=== PATIENT | female | born 1960 | race Caucasian/White ===

== ENCOUNTER 2017-01-19 14:27 | Emergency (ER) | payer OTHER ==
[2017-01-19 14:38] VITALS: BP 120/63; PULSE 68; RESP 18; TEMP 98; O2SAT 99
--- NOTE | 2017-01-19 14:55 | ED PDOC ---
Upper Extremity Pain/Injury Time Seen by Provider: 01/19/17 14:27 Chief Complaint (Nursing): Finger,Hand,&Wrist Chief Complaint (Provider): Left hand pain History Per: Patient History/Exam Limitations: no limitations Onset/Duration Of Symptoms: Hrs (x3 hours) Current Symptoms Are (Timing): Still Present Additional Complaint(s): 56 y/o right-handed female presents to the emergency department with a complaint of a left hand pain after machine at work closed on her fingers about 3 hours prior to arrival. Reports taking two 200 mg of Motrin for the relief of pain. Denies any further medical complaints. Past Medical History Reviewed: Historical Data, Nursing Documentation, Vital Signs Vital Signs: Last Vital Signs Temp 98 F 01/19/17 14:35 Pulse 68 01/19/17 14:35 Resp 18 01/19/17 14:35 BP 120/63 01/19/17 14:35 Pulse Ox 99 01/19/17 14:35 - Medical History PMH: No Chronic Diseases - Surgical History Surgical History: No Surg Hx - Family History Family History: States: Unknown Family Hx - Social History Current smoker - smoking cessation education provided: No Alcohol: None Drugs: Denies - Home Medications Home Medications: Ambulatory Orders Medication Instructions Recorded Ibuprofen [Motrin] 600 mg PO Q8 PRN #21 tab 01/19/17 - Allergies Allergies/Adverse Reactions: Allergies Allergy/AdvReac Type Severity Reaction Status Date / Time No Known Allergies Allergy Verified 01/19/17 14:35 Review of Systems ROS Statement: Except As Marked, All Systems Reviewed And Found Negative Musculoskeletal: Positive for: Hand Pain (Right) Physical Exam - Reviewed Nursing Documentation Reviewed: Yes Vital Signs Reviewed: Yes - Physical Exam Appears: Positive for: Non-toxic, No Acute Distress Head Exam: Positive for: ATRAUMATIC, NORMAL INSPECTION, NORMOCEPHALIC Skin: Positive for: Normal Color, Warm, Dry Neck: Positive for: Normal, Supple Extremity: Positive for: Normal ROM (Good function of the thumb. Able to flex and extend of all fingers. ), Tenderness (Tenderness and ecchymosis to the volar aspect and middle phalanx 3rd digit of the left hand. ). Negative for: Swelling Neurologic/Psych: Positive for: Alert, Oriented - ECG O2 Sat by Pulse Oximetry: 99 (RA) Pulse Ox Interpretation: Normal - Progress ED Course And Treament: HAND XRY: NO FX NOTED PLACED IN FINGER SPLINT (THIRD DIGIT) Medical Decision Making Medical Decision Making: Time: 14:47 Initial Impression: Left hand pain Initial Plan: --Hand Left 3 Views (RAD) --Reevaluation Scribe Attestation: Documented by Virginia Barksdale, acting as a scribe for Valentina Emerson PA-C. Provider Scribe Attestation: All medical record entries made by the Scribe were at my direction and personally dictated by me. I have reviewed the chart and agree that the record accurately reflects my personal performance of the history, physical exam, medical decision making, and the department course for this patient. I have also personally directed, reviewed, and agree with the discharge instructions and disposition. Disposition - Clinical Impression Clinical Impression: Finger contusion - Patient ED Disposition Is Patient to be Admitted: No - Disposition Referrals: Garland Jasmine MD [Staff Provider] - Disposition: Routine/Home Disposition Time: 15:14 Condition: FAIR Prescriptions: Ibuprofen [Motrin] 600 mg PO Q8 PRN #21 tab PRN Reason: Pain, Moderate (4-7) Instructions: Hand Sprain (ED) Print Language: JAPANESE
--- NOTE | 2017-01-19 15:38 | RAD ---
PROCEDURE: Left Hand Radiographs. HISTORY: R/O FX COMPARISON: Left hand radiographs performed 01/15/10 FINDINGS: BONES: No acute displaced fracture. JOINTS: No dislocation. SOFT TISSUES: Unremarkable. No evidence of radiopaque foreign body. OTHER FINDINGS: None. IMPRESSION: No acute displaced fracture, dislocation, or significant joint effusion identified. If symptoms persist, or if there is continued clinical concern, x-ray follow-up in 7-10 days should be considered.
== END 2017-01-19 16:01 | disposition home or self-care (01) ==
LOC: H.ER 14:27
DX: S60.00XA Contusion of unspecified finger without damage to nail, initial encounter (principal); W31.9XXA Contact with unspecified machinery, initial encounter; Y92.9 Unspecified place or not applicable; Y99.0 Civilian activity done for income or pay